=== PATIENT | male | born 1950 | race Caucasian/White ===

== ENCOUNTER 2019-02-07 08:39 | Day surgery (SDC) | payer MEDICARE ==
[2019-02-06 10:22] VITALS: BMI 35.4
[2019-02-07] MEDS ORDERED: Lidocaine 1% (PF) 30 ML VIAL ONE ×2 (09:53)
[2019-02-07 10:31] LABS: PTT 37.3 SEC (22.9-36.1); Prothrombin Time 13.6 SEC (12.0-14.7)
[2019-02-07 10:40] LABS: Anion Gap 12 mmol/L (10-20); BUN (Urea Nitrogen) 21 mg/dL (8.4-25.7); Calc. Creatinine Clearance 110 mL/min (70-130); Calcium 9.7 mg/dL (7.8-10.44); Carbon Dioxide 25 mmol/L (23-31); Chloride 107 mmol/L (98-107); Estimated GFR-MDRD 61; Glucose 114 mg/dL (80-115); Potassium 4.7 mmol/L (3.5-5.1); Sodium 139 mmol/L (136-145)
[2019-02-07 10:42] LABS: #Eosinphils 0.2 thou/uL (0.0-0.7); #Lymphocytes 1.6 thou/uL (1.20-3.40); #Monocytes 0.7 thou/uL (0.11-0.59); %Basophils 0.2 % (0.0-1.0); %Lymphocytes 21.3 % (21.0-51.0); %Monocytes 9.4 % (0.0-10.0); %Neutrophils 66.2 % (42.0-75.0); Hemoglobin 15.5 g/dL (14.0-18.0); Large Platelets SLIGHT; MDiff Complete? YES; Mean Corpuscular HGB CONC 33.5 g/dL (32.0-36.0); Mean Corpuscular Hemoglobin 32.3 pg (27.0-31.0); Mean Corpuscular Volume 96.4 fL (78.0-98.0); Mean Platelet Volume 12.5 fL (7.4-10.4); Platelet Count 78 thou/uL (130-400); Platelet Morphology Comment Appears Decreased; RBC Distribution Width 13.1 % (11.5-14.5); Red Blood Cell (RBC) Count 4.79 mill/uL (4.70-6.10); White Blood Cell (WBC) Count 7.5 thou/uL (4.8-10.8)
[2019-02-07] MEDS ORDERED: Midazolam HCl 2 mg/2 ml Vial ONE ×3 (10:59→12:29)
[2019-02-07] MEDS ORDERED: Fentanyl 100 MCG/2 ML VIAL ONE ×4 (10:59→13:26)
[2019-02-07] MEDS ORDERED: diphenhydrAMINE 50 MG/ML VIAL ONE (11:41)
[2019-02-07] MEDS ORDERED: Isoproterenol 0.2 MG/1 ML AMP ONE (12:26)
--- NOTE | 2019-02-07 19:56 | OP ---
DATE OF PROCEDURE: 02/07/2019 PROCEDURE PERFORMED: Comprehensive electrophysiology study. REASON FOR PROCEDURE: Mr. Landin is a 68-year-old male with history of CHF, atrial fibrillation. His LVEF is reduced at 35% to 40% now. Mild left atrial enlargement. Moderate mitral regurgitation, mild aortic insufficiency. He has good ventricular rate control. He is here for an EP study to assess inducibility of ventricular arrhythmias. DESCRIPTION OF PROCEDURE: The patient received Versed and fentanyl for conscious sedation. Throughout the procedure, oximetry and vital signs were monitored by me. Total duration of conscious sedation protocol was an hour and 30 minutes (total of 90 minutes). Throughout the case, the patient tolerated the procedure well. Benadryl was also used IV apart from Versed and fentanyl. No complications noted. The right femoral vein was prepped, draped, and anesthetized using subcutaneous lidocaine, and under ultrasound guidance, the right femoral vein was cannulated. A 6-[place] short sheath was introduced, through which an octapolar catheter was advanced to the right atrium, right ventricle, His bundle position. Pacing, mapping, and recording were performed in each location. The following findings were noted. The baseline rhythm was atrial fibrillation with average cycle length of about 1260 milliseconds. The QRS is 74 milliseconds, QT 472 milliseconds, HV was measured to be 56 milliseconds. Coarse atrial fibrillation seen, not atrial flutter. The ventricular access to my testing was performed with 600 [address] trains. Up to 3 ventricular extrastimuli was delivered in a decremental fashion, reduced to the refractory period. protocol was repeated on Isuprel 6 mcg/minute after adequate ventricular rate response was seen. The ventricular ERP on Isuprel was down to 400/180/180/180 milliseconds. Despite these efforts, only have a short couple of beats of nonsustained ventricular tachycardia seen only. CONCLUSION: 1. No inducible ventricular tachycardia per standard protocol. 2. Chronic atrial fibrillation. 3. Normal His-Purkinje system. 4. No pericardial effusion per cine post procedure. PLAN: Resume anticoagulation, and for now, hold off ICD implant. Job ID: [id number]
== END 2019-02-07 14:35 | disposition home or self-care (01) ==
LOC: CCL 08:39
PROVIDERS: ATTEND Internal Medicine Cardiovascular Disease
PROC: 4A023FZ Measurement of Cardiac Rhythm, Percutaneous Approach (ICD-10-PCS; principal; 2019-02-07)
PROC: 4A0234Z Measurement of Cardiac Electrical Activity, Percutaneous Approach (ICD-10-PCS; 2019-02-07)
PROC: 02K83ZZ Map Conduction Mechanism, Percutaneous Approach (ICD-10-PCS; 2019-02-07)
DX: I11.0 Hypertensive heart disease with heart failure (principal); I50.22 Chronic systolic (congestive) heart failure; I48.1 Persistent atrial fibrillation; I35.1 Nonrheumatic aortic (valve) insufficiency; I34.0 Nonrheumatic mitral (valve) insufficiency; J44.9 Chronic obstructive pulmonary disease, unspecified; E11.9 Type 2 diabetes mellitus without complications; Z79.01 Long term (current) use of anticoagulants; Z79.899 Other long term (current) drug therapy; Z88.5 Allergy status to narcotic agent
CPT/HCPCS: 36415; 76942; 80048; 85025; 85610; 85730; 93005; 93010; 93621; 93623; 99152; 99153; C1730; C1769; J0690; J1200; J1644; J2001; J2250; J3010; J3490

== ENCOUNTER 2021-06-27 13:30 | Outpatient (CLI) | payer MEDICARE | END 2021-06-27 13:31 | disposition home or self-care (01) | LOC: MRI 13:30 | PROVIDERS: ATTEND Physician Assistant Medical | DX: R22.32 Localized swelling, mass and lump, left upper limb (principal); M18.12 Unilateral primary osteoarthritis of first carpometacarpal joint, left hand; M25.442 Effusion, left hand ==

== ENCOUNTER 2021-10-24 07:53 | Outpatient (CLI) | payer MEDICARE ==
[2021-10-24] MEDS ORDERED: Iopamidol 370 76% 100 ML VIAL ONE (08:49)
== END 2021-10-24 07:54 | disposition home or self-care (01) ==
LOC: CT 07:53
PROVIDERS: ATTEND Internal Medicine Hematology & Oncology
DX: C79.89 Secondary malignant neoplasm of other specified sites (principal); C80.1 Malignant (primary) neoplasm, unspecified; R91.8 Other nonspecific abnormal finding of lung field; N20.0 Calculus of kidney; N28.1 Cyst of kidney, acquired; K82.8 Other specified diseases of gallbladder; M19.90 Unspecified osteoarthritis, unspecified site; Z96.653 Presence of artificial knee joint, bilateral
CPT/HCPCS: 70491; 71260; 74177; 78306; A9503; Q9967

== ENCOUNTER 2021-11-04 09:30 | Outpatient (CLI) | payer MEDICARE | END 2021-11-04 09:31 | disposition home or self-care (01) | LOC: PET 09:30 | PROVIDERS: ATTEND Internal Medicine Hematology & Oncology | DX: C79.89 Secondary malignant neoplasm of other specified sites (principal); R93.7 Abnormal findings on diagnostic imaging of other parts of musculoskeletal system; C80.1 Malignant (primary) neoplasm, unspecified | CPT/HCPCS: 78816; A9552 ==

== ENCOUNTER 2022-02-10 09:30 | Outpatient (CLI) | payer MEDICARE | END 2022-02-10 09:31 | disposition home or self-care (01) | LOC: PET 09:30 | PROVIDERS: ATTEND Internal Medicine Hematology & Oncology | DX: C34.82 Malignant neoplasm of overlapping sites of left bronchus and lung (principal); C79.51 Secondary malignant neoplasm of bone; R91.8 Other nonspecific abnormal finding of lung field | CPT/HCPCS: 78816; A9552 ==

== ENCOUNTER 2022-04-25 13:45 | Outpatient (CLI) | payer MEDICARE | END 2022-04-25 13:46 | disposition home or self-care (01) | LOC: PET 13:45 | PROVIDERS: ATTEND Internal Medicine Hematology & Oncology | DX: C34.82 Malignant neoplasm of overlapping sites of left bronchus and lung (principal); C79.51 Secondary malignant neoplasm of bone; R22.1 Localized swelling, mass and lump, neck | CPT/HCPCS: 78816; A9552 ==

== ENCOUNTER 2022-05-11 08:29 | Outpatient (CLI) | payer MEDICARE ==
[2022-05-11] MEDS ORDERED: Iopamidol-370 76% 500 ML 1 ML ONE (14:51)
== END 2022-05-11 08:30 | disposition home or self-care (01) ==
LOC: CT 08:29
PROVIDERS: ATTEND Internal Medicine Hematology & Oncology
DX: C34.82 Malignant neoplasm of overlapping sites of left bronchus and lung (principal); R93.89 Abnormal findings on diagnostic imaging of other specified body structures; C79.51 Secondary malignant neoplasm of bone
CPT/HCPCS: 70491; 82565; Q9967

== ENCOUNTER 2022-09-11 12:01 | Outpatient (CLI) | payer MEDICARE ==
[~2022-09-11 12:01] MED LIST: Iopamidol 370 76% 100 ML VIAL ONE
== END 2022-09-11 12:02 | disposition home or self-care (01) ==
LOC: CT 12:01
PROVIDERS: ATTEND Internal Medicine Hematology & Oncology
DX: C34.82 Malignant neoplasm of overlapping sites of left bronchus and lung (principal); R22.1 Localized swelling, mass and lump, neck
CPT/HCPCS: 70491

== ENCOUNTER 2022-09-20 11:00 | Outpatient (CLI) | payer MEDICARE | END 2022-09-20 11:01 | disposition home or self-care (01) | LOC: PET 11:00 | PROVIDERS: ATTEND Internal Medicine Hematology & Oncology | DX: C34.82 Malignant neoplasm of overlapping sites of left bronchus and lung (principal); C79.51 Secondary malignant neoplasm of bone; R94.8 Abnormal results of function studies of other organs and systems | CPT/HCPCS: 78816; A9552 ==

== ENCOUNTER 2023-01-02 08:45 | Outpatient (CLI) | payer MEDICARE | END 2023-01-02 08:46 | LOC: PET 08:45 | PROVIDERS: ATTEND Internal Medicine Hematology & Oncology | DX: C34.82 Malignant neoplasm of overlapping sites of left bronchus and lung (principal); C79.51 Secondary malignant neoplasm of bone | CPT/HCPCS: 78816; A9552 ==

== ENCOUNTER 2023-04-24 09:00 | Outpatient (CLI) | payer MEDICARE | END 2023-04-24 09:01 | disposition home or self-care (01) | LOC: CT 09:00 | PROVIDERS: ATTEND Internal Medicine Hematology & Oncology | DX: C34.82 Malignant neoplasm of overlapping sites of left bronchus and lung (principal); C79.51 Secondary malignant neoplasm of bone; N20.0 Calculus of kidney; N28.1 Cyst of kidney, acquired; R59.0 Localized enlarged lymph nodes; K57.30 Diverticulosis of large intestine without perforation or abscess without bleeding; M47.819 Spondylosis without myelopathy or radiculopathy, site unspecified; M48.061 Spinal stenosis, lumbar region without neurogenic claudication; R91.8 Other nonspecific abnormal finding of lung field; K63.89 Other specified diseases of intestine; Z96.651 Presence of right artificial knee joint | CPT/HCPCS: 70491; 71260; 74177; 78306; 82565; A9503 ==

== ENCOUNTER 2023-12-11 07:14 | Outpatient (CLI) | payer MEDICARE ==
[2023-12-11] MEDS ORDERED: Iopamidol 370 76% 100 ML VIAL ONE (12:13)
== END 2023-12-11 07:15 | disposition home or self-care (01) ==
LOC: CT 07:14
PROVIDERS: ATTEND Internal Medicine Hematology & Oncology
DX: C34.82 Malignant neoplasm of overlapping sites of left bronchus and lung (principal); C79.51 Secondary malignant neoplasm of bone; R22.1 Localized swelling, mass and lump, neck; J98.4 Other disorders of lung; N32.89 Other specified disorders of bladder; N20.0 Calculus of kidney; N28.1 Cyst of kidney, acquired; K59.00 Constipation, unspecified; K57.90 Diverticulosis of intestine, part unspecified, without perforation or abscess without bleeding; Z96.651 Presence of right artificial knee joint
CPT/HCPCS: 70491; 71260; 74177; 78306; 82565; A9503; Q9967

== ENCOUNTER 2024-01-04 12:54 | Outpatient (CLI) | payer MEDICARE ==
[~2024-01-04 12:54] MED LIST changes: -Iopamidol 370 76% 100 ML VIAL ONE; +Magnevist 469MG/ML 20 ML VIAL ONE
== END 2024-01-04 12:55 | disposition home or self-care (01) ==
LOC: MRI 12:54
PROVIDERS: ATTEND Radiology Radiation Oncology
DX: R22.1 Localized swelling, mass and lump, neck (principal); M50.30 Other cervical disc degeneration, unspecified cervical region
CPT/HCPCS: 70543; A9579

== ENCOUNTER 2024-04-02 09:37 | Outpatient (CLI) | payer MEDICARE ==
[2024-04-02] MEDS ORDERED: Iopamidol 370 76% 100 ML VIAL ONE (10:46)
== END 2024-04-02 09:38 | disposition home or self-care (01) ==
LOC: CT 09:37
PROVIDERS: ATTEND Radiology Radiation Oncology
DX: C77.0 Secondary and unspecified malignant neoplasm of lymph nodes of head, face and neck (principal); R91.8 Other nonspecific abnormal finding of lung field; R22.1 Localized swelling, mass and lump, neck
CPT/HCPCS: 36415; 70491; 82565; Q9967

== ENCOUNTER 2024-04-17 09:30 | Outpatient (CLI) | payer MEDICARE | END 2024-04-17 09:31 | disposition home or self-care (01) | LOC: PET 09:30 | PROVIDERS: ATTEND Radiology Radiation Oncology | DX: C44.699 Other specified malignant neoplasm of skin of left upper limb, including shoulder (principal); R91.8 Other nonspecific abnormal finding of lung field; E27.9 Disorder of adrenal gland, unspecified; M89.9 Disorder of bone, unspecified | CPT/HCPCS: 78815; A9552 ==

== ENCOUNTER 2024-05-10 12:30 | Inpatient (IN) | payer MEDICARE ==
[~2024-05-10 12:30] MED LIST changes: +Iopamidol-370 76% 500 ML MDV (1 ML CHARGE) ONE; -Magnevist 469MG/ML 20 ML VIAL ONE
[2024-05-10] MEDS ORDERED: fentaNYL 50 mcg/mL 1 mL Vial ONE (13:09)
[2024-05-10 13:18] LABS: Hematocrit 27.1 % (42.0-52.0); Hemoglobin 8.6 g/dL (14.0-18.0); Mean Corpuscular HGB CONC 31.7 g/dL (32.0-36.0); Mean Corpuscular Volume 94.4 fL (78.0-98.0); Mean Platelet Volume 12.8 fL (7.4-10.4); Platelet Count 90 10x3/uL (130-400); RBC Distribution Width 16.1 % (11.5-14.5); Red Blood Cell (RBC) Count 2.87 mill/uL (4.70-6.10)
[2024-05-10 13:22] LABS: ALT (SGPT) 44 U/L (8-55); AST (SGOT) 33 U/L (5-34); Albumin 1.8 g/dL (3.4-4.8); Alkaline Phosphatase 187 U/L (40-110); Anion Gap 14 mmol/L (10-20); BUN (Urea Nitrogen) 30 mg/dL (8.4-25.7); Calc. Creatinine Clearance 0 mL/min (70-130); Calcium 9.6 mg/dL (7.8-10.44); Carbon Dioxide 23 mmol/L (23-31); Chloride 103 mmol/L (98-107); Estimated GFR 62; Globulin 3.9 g/dL (2.4-3.5); Glucose 126 mg/dL (83-110); Lipase Less than 4 U/L (8-78); Potassium 3.6 mmol/L (3.5-5.1); Protein, Total 5.7 g/dL (5.8-8.1); Sodium 136 mmol/L (136-145)
[2024-05-10 13:30] LABS: Troponin I 1.339 ng/mL (< 0.028)
[2024-05-10 13:42] LABS: Anisocytosis SLIGHT = 6-15 cells HPF (0-5); Band 5 % (5-11); Macrocytosis SLIGHT = 6-15 cells HPF (0-5); Monocytes 3 % (0-10); Neutrophil 92 % (42-75); Platelet Adequacy Comment Platelets Decreased; Polychromasia MODERATE = 3-4 cells HPF (0-2)
[2024-05-10] MEDS ORDERED: Cefepime 2 GM VIAL ONE (13:57)
[2024-05-10] MEDS ORDERED: Sodium Chloride 0.9% 100 ML ONE (14:01)
[2024-05-10] MEDS ORDERED: Enoxaparin 100 MG (1 mL) SYRINGE ONE (14:28)
[2024-05-10] MEDS ORDERED: Communication Order-Pharmacy FS PRN (16:17)
[2024-05-10] MEDS ORDERED: Nitroglycerin 0.4 MG TAB (25 Tab Bottle) SL PRN (16:18)
[2024-05-10] MEDS ORDERED: HYDROcodone/Acetaminophen 10/325 mg Tablet PO PRN (16:26)
[2024-05-10] MEDS ORDERED: Ondansetron ODT 4 MG TAB PO PRN (16:27)
[2024-05-10] MEDS ORDERED: Calcium Carbonate 500 MG ChewTAB PO PRN (16:27)
[2024-05-10] MEDS ORDERED: Ondansetron PF 4 MG/2 ML Vial IVP PRN (16:27)
[2024-05-10] MEDS ORDERED: Acetaminophen 325 MG TAB PO PRN (16:27)
[2024-05-10 16:53] LABS: INR-International Normal Ratio 2.2; Prothrombin Time 24.3 sec (12.0-14.7)
[2024-05-10 16:54] LABS: Magnesium 2.1 mg/dL (1.6-2.6); PTT 47.5 sec (22.9-36.1)
[2024-05-10 17:05] LABS: Bacteria/HPF None Seen HPF (None Seen); Bilirubin Negative (Negative); Blood, Urine Negative (Negative); CAUTI Indications for Culture Pelvic or flank pain; Clarity Clear (Clear); Glucose, Urine (Dipstick) Normal (Negative); Ketone, Urine Negative (Negative); Leukocyte Negative Leu/uL (Negative); Nitrite Negative (Negative); Protein, Urine (Dipstick) 20 mg/dL (Neg-Trace); RBC/HPF 0-3 HPF (0-3); Specific Gravity, Urine 1.023 (1.002-1.036); Squamous Epithelial 0-3 HPF (0-3); Urobilinogen Normal mg/dL (Less than 2); WBC/HPF 0-3 HPF (0-3)
[2024-05-10 17:08] LABS: Urine Culture Reflex No No
[2024-05-10 17:45] VITALS: BMI 29.6
[2024-05-10 18:24] LABS: Troponin I 1.502 ng/mL (< 0.028)
[2024-05-10] MEDS ORDERED: Albumin 25% 0 ML ONE (19:00)
[2024-05-10] MEDS: Vancomycin (BATCH) 2.5 GM in Premix 1 BAG IVPB SCH (19:26)
[2024-05-10] MEDS: Albumin 25% 25 GM (100 mL) BOT IVPB SCH (20:13)
[2024-05-10] MEDS: D5 0.9% NS w/ 20 mEq KCl 1,000 ML IV SCH (21:41)
[2024-05-10] MEDS: Senokot S 8.6-50 MG TAB PO SCH (21:41)
[2024-05-10] MEDS: Famotidine 20 MG TAB PO SCH (21:41)
[2024-05-10] MEDS: CEFAZOLIN 2 GM in Sodium Chloride 0.9% 100 ML IVPB SCH (21:41)
[2024-05-10] MEDS: Famotidine/PF 20 mg/2ml Vial SLOW IVP SCH (21:42)
[2024-05-11] MEDS: Enoxaparin 120 MG/0.8 ML SYRINGE SC SCH ×2 (01:09→08:26)
[2024-05-11] MEDS: diphenhydrAMINE 50 MG/ML VIAL IVP SCH (02:41)
[2024-05-11] MEDS: Vancomycin 1 GM in Premix 1 BAG IVPB SCH (05:16)
[2024-05-11] MEDS: Cyanocobalamin (Vitamin B-12) 1,000 MCG TAB PO SCH (08:27)
[2024-05-11 10:20] LABS: Hematocrit 25.3 % (42.0-52.0); Hemoglobin 8.4 g/dL (14.0-18.0); Mean Corpuscular HGB CONC 33.2 g/dL (32.0-36.0); Mean Corpuscular Hemoglobin 30.5 pg (27.0-31.0); Mean Platelet Volume 12.7 fL (7.4-10.4); Platelet Count 84 10x3/uL (130-400); RBC Distribution Width 16.5 % (11.5-14.5); Red Blood Cell (RBC) Count 2.75 mill/uL (4.70-6.10)
[2024-05-11 10:34] LABS: Vancomycin, Random 27.4 ug/mL (See Comment)
[2024-05-11 10:35] LABS: Phosphorus 3.6 mg/dL (2.3-4.7)
[2024-05-11 10:37] LABS: ALT (SGPT) 30 U/L (8-55); AST (SGOT) 19 U/L (5-34); Alkaline Phosphatase 177 U/L (40-110); Anion Gap 13 mmol/L (10-20); BUN (Urea Nitrogen) 32 mg/dL (8.4-25.7); Bilirubin, Total 0.8 mg/dL (0.2-1.2); Calc. Creatinine Clearance 81 mL/min (70-130); Calcium 9.8 mg/dL (7.8-10.44); Carbon Dioxide 21 mmol/L (23-31); Chloride 104 mmol/L (98-107); Estimated GFR 60; Globulin 3.5 g/dL (2.4-3.5); Glucose 165 mg/dL (83-110); Magnesium 2.1 mg/dL (1.6-2.6); Potassium 3.4 mmol/L (3.5-5.1); Protein, Total 5.5 g/dL (5.8-8.1); Sodium 135 mmol/L (136-145)
[2024-05-11 10:48] LABS: Troponin I 1.698 ng/mL (< 0.028)
[2024-05-11 10:54] LABS: Anisocytosis MODERATE=16-30 cells HPF (0-5); Band 4 % (5-11); Eosinophils 1 % (0-10); Lymphocytes 1 % (21-51); Macrocytosis SLIGHT = 6-15 cells HPF (0-5); Metamyelocyte 1 % (0-0); Monocytes 1 % (0-10); Neutrophil 92 % (42-75); Ovalocytes SLIGHT = 2-5 cells HPF (0-1); Platelet Adequacy Comment Platelets Decreased; Polychromasia MODERATE = 3-4 cells HPF (0-2); Schistocytes SLIGHT = 2-5 cells HPF (0-1)
[2024-05-11] MEDS: Dexmedetomidine In 0.9 % NaCl 100 ML IVPB SCH (19:45)
[2024-05-11] MEDS: Mirtazapine 15 MG TAB PO SCH (21:01)
[2024-05-11] MEDS: QUEtiapine 25 MG TAB PO SCH (21:02)
[2024-05-12 06:31] LABS: Anion Gap 12 mmol/L (10-20); BUN (Urea Nitrogen) 34 mg/dL (8.4-25.7); Calc. Creatinine Clearance 95 mL/min (70-130); Calcium 10.2 mg/dL (7.8-10.44); Carbon Dioxide 22 mmol/L (23-31); Chloride 106 mmol/L (98-107); Estimated GFR 73; Glucose 119 mg/dL (83-110); Potassium 3.4 mmol/L (3.5-5.1); Sodium 137 mmol/L (136-145)
[2024-05-12] MEDS: Vancomycin (BATCH) 1.5 GM in Premix 1 BAG IVPB SCH (06:52)
[2024-05-12 08:05] LABS: Hematocrit 26.5 % (42.0-52.0); Hemoglobin 8.8 g/dL (14.0-18.0); Mean Corpuscular HGB CONC 33.2 g/dL (32.0-36.0); Mean Corpuscular Hemoglobin 30.2 pg (27.0-31.0); Mean Corpuscular Volume 91.1 fL (78.0-98.0); Platelet Count 72 10x3/uL (130-400); RBC Distribution Width 16.7 % (11.5-14.5); Red Blood Cell (RBC) Count 2.91 mill/uL (4.70-6.10)
[2024-05-12] MEDS: Aspirin 81 mg Enteric Coated Tablet PO SCH (08:58)
[2024-05-12 10:06] VITALS: BMI 29.6
[2024-05-12 16:14] VITALS: BP 128/86
[2024-05-13 05:45] LABS: Hematocrit 27.5 % (42.0-52.0); Hemoglobin 8.9 g/dL (14.0-18.0); Platelet Count 81 10x3/uL (130-400)
[2024-05-14 01:25] VITALS: TEMP 98.8
== END 2024-05-14 01:04 | disposition expired | DRG 175 ==
LOC: ERS 12:30 → ERHOLD 15:07 → IMCU/EMU 20:06
PROVIDERS: ADMIT Internal Medicine; ATTEND Internal Medicine
PROC: 3E03329 Introduction of Other Anti-infective into Peripheral Vein, Percutaneous Approach (ICD-10-PCS; principal; 2024-05-10)
PROC: 30233J1 Transfusion of Nonautologous Serum Albumin into Peripheral Vein, Percutaneous Approach (ICD-10-PCS; 2024-05-10)
DX: I26.99 Other pulmonary embolism without acute cor pulmonale (principal); E43 Unspecified severe protein-calorie malnutrition; G93.41 Metabolic encephalopathy; I21.4 Non-ST elevation (NSTEMI) myocardial infarction; C34.91 Malignant neoplasm of unspecified part of right bronchus or lung; J90 Pleural effusion, not elsewhere classified; C77.9 Secondary and unspecified malignant neoplasm of lymph node, unspecified; E87.1 Hypo-osmolality and hyponatremia; C34.92 Malignant neoplasm of unspecified part of left bronchus or lung; Z66 Do not resuscitate; Z51.5 Encounter for palliative care; E11.9 Type 2 diabetes mellitus without complications; I10 Essential (primary) hypertension; D73.5 Infarction of spleen; D63.8 Anemia in other chronic diseases classified elsewhere; I48.0 Paroxysmal atrial fibrillation; E78.5 Hyperlipidemia, unspecified; Z96.653 Presence of artificial knee joint, bilateral; Z88.5 Allergy status to narcotic agent; Z79.01 Long term (current) use of anticoagulants; Z79.899 Other long term (current) drug therapy; Z92.3 Personal history of irradiation; Z98.890 Other specified postprocedural states; Z87.891 Personal history of nicotine dependence; G89.4 Chronic pain syndrome; Z68.29 Body mass index [BMI] 29.0-29.9, adult; S11.90XA Unspecified open wound of unspecified part of neck, initial encounter; D69.6 Thrombocytopenia, unspecified; E87.6 Hypokalemia
CPT/HCPCS: 36415; 71275; 74177; 80048; 80053; 80202; 81001; 82533; 83605; 83690; 83735; 83880; 84100; 84484; 85014; 85018; 85025; 85027; 85049; 85610; 85730; 87040; 87081; 93005; 93010; 93306; 93970; 96372; 96374; 96375; 97139; J0692; J1200; J1650; J3010; J3370; J3480; J3490; P9047; Q9967